=== PATIENT | male | born 1950 | race Caucasian/White ===

== ENCOUNTER 2022-04-03 05:52 | Day surgery (SDC) | payer MEDICARE, OTHER ==
[2022-04-02 09:35] VITALS: BMI 25.8
[~2022-04-03 05:52] MED LIST: EPINEPHrine 0.3 MG in Ophthalmic Irrigation Solution 500 ML IRR SCH
[2022-04-03] MEDS ORDERED: Phenylephrine 2.5% Ophth Soln 5 ML BOT ONE (06:06)
[2022-04-03] MEDS ORDERED: Cyclopentolate 1% Opth Drop 2 ML BOT ONE (06:06)
[2022-04-03] MEDS ORDERED: Midazolam HCl 2 mg/2 ml Vial ONE (06:38)
[2022-04-03] MEDS ORDERED: fentaNYL PF 100 MCG/2 ML SYRINGE ONE (06:39)
[2022-04-03] MEDS ORDERED: PROPOFOL 20 ML ONE (06:39)
[2022-04-03] MEDS ORDERED: Lidocaine 1% PF 5 ML VIAL ONE (07:04)
[2022-04-03] MEDS ORDERED: Bupivacaine 0.75% 10 ML VIAL ONE (07:04)
[2022-04-03] MEDS ORDERED: CEFAZOLIN 1 GM VIAL ONE (07:04)
[2022-04-03] MEDS ORDERED: PROPOFOL 200 MG/20 ML VIAL ONE (07:04)
[2022-04-03] MEDS ORDERED: Triamcinolone 40 MG/ML VIAL ONE (07:04)
[2022-04-03] MEDS ORDERED: Maxitrol 0.1% Opth Oint 3.5 GM TUBE ONE (07:04)
[2022-04-03] MEDS ORDERED: Lidocaine 4% PF 5 ML AMP ONE (07:04)
== END 2022-04-03 08:25 | disposition home or self-care (01) ==
LOC: SDC 05:52
PROVIDERS: ATTEND Ophthalmology Retina Specialist
PROC: 08T43ZZ Resection of Right Vitreous, Percutaneous Approach (ICD-10-PCS; principal; 2022-04-03)
PROC: 08NE3ZZ Release Right Retina, Percutaneous Approach (ICD-10-PCS; 2022-04-03)
DX: H43.311 Vitreous membranes and strands, right eye (principal); I10 Essential (primary) hypertension; Z86.16 Personal history of COVID-19; Z79.899 Other long term (current) drug therapy; Z98.41 Cataract extraction status, right eye; Z98.42 Cataract extraction status, left eye; Z96.1 Presence of intraocular lens
CPT/HCPCS: J0171; J0690; J2250; J2704; J3301; J3490

== ENCOUNTER 2022-05-08 06:34 | Day surgery (SDC) | payer MEDICARE, OTHER ==
[2022-05-06 15:54] VITALS: BMI 25.1
[2022-05-08] MEDS ORDERED: Phenylephrine 2.5% Ophth Soln 5 ML BOT ONE (06:50)
[2022-05-08] MEDS ORDERED: Cyclopentolate 1% Opth Drop 2 ML BOT ONE (06:50)
[2022-05-08] MEDS ORDERED: Midazolam HCl 2 mg/2 ml Vial ONE (06:51)
[2022-05-08] MEDS ORDERED: FENTANYL 50 MCG/ML 1 ML VIAL ONE (06:51)
[2022-05-08] MEDS ORDERED: Bupivacaine 0.75% 10 ML VIAL ONE (07:56)
[2022-05-08] MEDS ORDERED: Lidocaine 1% PF 5 ML VIAL ONE (07:56)
[2022-05-08] MEDS ORDERED: PROPOFOL 200 MG/20 ML VIAL ONE (07:56)
[2022-05-08] MEDS ORDERED: CEFAZOLIN 1 GM VIAL ONE (07:56)
[2022-05-08] MEDS ORDERED: Lidocaine 4% PF 5 ML AMP ONE (07:56)
[2022-05-08] MEDS ORDERED: Maxitrol 0.1% Opth Oint 3.5 GM TUBE ONE (07:56)
[2022-05-08] MEDS ORDERED: Triamcinolone 40 MG/ML VIAL ONE (07:56)
== END 2022-05-08 09:00 | disposition home or self-care (01) ==
LOC: SDC 06:34
PROVIDERS: ATTEND Ophthalmology Retina Specialist
PROC: 08T53ZZ Resection of Left Vitreous, Percutaneous Approach (ICD-10-PCS; principal; 2022-05-08)
PROC: 08NF3ZZ Release Left Retina, Percutaneous Approach (ICD-10-PCS; 2022-05-08)
DX: H43.312 Vitreous membranes and strands, left eye (principal); Z79.899 Other long term (current) drug therapy; Z98.41 Cataract extraction status, right eye; Z98.42 Cataract extraction status, left eye
CPT/HCPCS: 67041; J3010; J0171; J0690; J2250; J2704; J3301; J3490